=== PATIENT | female | born 1990 ===

== ENCOUNTER 2018-05-04 17:34 | Emergency (ER) | payer OTHER ==
[~2018-05-04] VITALS: Ht 149.9 cm; Wt 83.5 kg
[~2018-05-04 17:34] MED LIST: LAMICTAL200 M1
== END 2018-05-04 20:30 | disposition home or self-care (01) ==
LOC: ER 17:34
DX: S40.029A Contusion of unspecified upper arm, initial encounter (principal); S00.83XA Contusion of other part of head, initial encounter; S20.00XA Contusion of breast, unspecified breast, initial encounter; V49.88XA Car occupant (driver) (passenger) injured in other specified transport accidents, initial encounter; Y92.480 Sidewalk as the place of occurrence of the external cause; Y93.89 Activity, other specified; Y99.8 Other external cause status